=== PATIENT | male | born 1965 | race Caucasian/White ===

== ENCOUNTER 2020-09-30 11:21 | Inpatient (IN) | payer SELFPAY ==
[~2020-09-30] VITALS: Ht 175.3 cm; Wt 97.9 kg
[~2020-09-30 11:21] MED LIST: PHENYLEPHRINE 50 MG in SODIUM CHLORIDE 0.9% 245 ML IV PRN; REGULAR INSULIN 100 UNITS in SODIUM CHLORIDE 0.9% 99 ML IV PRN
[2020-09-30] MEDS ORDERED: MORPHINE SULFATE 4 MG/ML, 1ML ONE ×3 (11:35→12:15)
[2020-09-30] MEDS: MORPHINE SULFATE 4 MG/ML, 1ML IVPush PRN ×2 (11:41→11:52)
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
[2020-09-30] MEDS ORDERED: ONDANSETRON 2MG/ML, 2ML ONE (11:49)
[2020-09-30 11:54] LABS: BASOPHILS % (AUTO) 1 % (0-1); EOSINOPHILS % (AUTO) 1 % (1-7); LYMPHOCYTES % (AUTO) 25 % (22-44); MEAN CORPUSCULAR HEMOGLOBIN 33.3 pg (27.5-34.5); MEAN CORPUSCULAR HGB CONC 34.4 g/dL (33.2-36.2); MEAN PLATELET VOLUME 7.3 fL (7.4-10.4); MONOCYTES % (AUTO) 8 % (2-9); NEUTROPHILS % (AUTO) 66 % (42-75); PLATELET COUNT 422 x10^3/uL (130-400); RED BLOOD COUNT 4.82 x10^6/uL (4.38-5.82); RED CELL DISTRIBUTION WIDTH 12.7 % (9.4-14.8)
[2020-09-30] MEDS ORDERED: HEPARIN 5,000 UNITS/ML, 1ML ONE (11:54)
[2020-09-30] MEDS ORDERED: HEPARIN 5,000 UNITS/ML, 1ML IV PRN (12:00)
[2020-09-30] MEDS ORDERED: PLEASE ENTER HEIGHT AND WEIGHT MC SCH (12:00)
[2020-09-30] MEDS ORDERED: SODIUM CHLORIDE FLUSH 10ML SYR IVF SCH ×2 (12:00→21:00)
[2020-09-30] MEDS ORDERED: ONDANSETRON 2MG/ML, 2ML IVPush ONE (12:00)
[2020-09-30] MEDS ORDERED: HEPARIN 25,000 UNITS/250ML PMX 250 ML IV PRN (12:00)
[2020-09-30] MEDS ORDERED: HEPARIN 5,000 UNITS/ML, 1ML IV ONE (12:00)
[2020-09-30] MEDS ORDERED: NITROGLYCERIN 0.4 MG BOTTLE (25 TABS) SL PRN (12:00)
[2020-09-30] MEDS ORDERED: ASPIRIN 325 MG TABLET EC PO ONE (12:00)
[2020-09-30] MEDS ORDERED: NITROGLYCERIN 0.4 MG/SPRAY SL PRN (12:00)
[2020-09-30] MEDS ORDERED: SODIUM CHLORIDE FLUSH 10ML SYR IVF ONE (12:00)
[2020-09-30 12:05] LABS: ALANINE AMINOTRANSFERASE 14 U/L (12-78); ALBUMIN 4.3 g/dL (3.4-5.0); ANION GAP 14 mmol/L (5-15); CALCIUM 9.2 mg/dL (8.5-10.1); CHLORIDE 106 mmol/L (98-107); CREATININE 1.26 mg/dL (0.7-1.3)
[2020-09-30 12:10] LABS: ALKALINE PHOSPHATASE 58 U/L (45-117); BILIRUBIN,TOTAL 0.5 mg/dL (0.2-1.0); TOTAL PROTEIN 7.6 g/dL (6.4-8.2); TROPONIN I < 0.015 ng/mL (0.000-0.045)
--- NOTE | 2020-09-30 12:11 | NUR ---
PER DR. MORE DO NOT START HEPARIN DRIP AT THIS TIME, ONLY HEPARIN BOLUS OKAY TO GIVE.
--- NOTE | 2020-09-30 12:17 | NUR ---
PER DR. MORE'S ORDER, GIVE 4MG MORPHINE IV NOW FOR PAIN RELIEF.
[2020-09-30] MEDS ORDERED: MIDAZOLAM 1 MG/ML, 2ML ONE (12:22)
[2020-09-30 12:23] LABS: CHOL/HDL RATIO 5.9; LDL/HDL RATIO 4.3 (0.5-3.0)
[2020-09-30] MEDS ORDERED: HEPARIN 1,000 UNITS/ML, 10ML ONE ×2 (12:23→14:40)
[2020-09-30] MEDS ORDERED: VERAPAMIL 2.5 MG/ML, 2ML ONE (12:23)
[2020-09-30] MEDS ORDERED: LIDOCAINE-MPF 1%, 5ML ONE (12:23)
[2020-09-30] MEDS ORDERED: FENTANYL PF 100 MCG/2ML ONE ×2 (12:23→19:41)
--- NOTE | 2020-09-30 12:28 | NUR ---
PT TRANSPORTED TO [facility].
[2020-09-30] MEDS ORDERED: ACETAMINOPHEN 325 MG TABLET PO PRN (12:30)
[2020-09-30] MEDS ORDERED: ZOLPIDEM 5MG TABLET PO PRN (12:30)
[2020-09-30] MEDS ORDERED: ALUMINUM/MAG/SIMETHICONE 30 ML UDC PO PRN (12:30)
[2020-09-30] MEDS ORDERED: METOPROLOL TARTRATE 25 MG TAB PO ONE (12:30)
[2020-09-30] MEDS ORDERED: HEPARIN 25,000 UNITS/250ML PMX 250 ML ONE (12:53)
[2020-09-30] MEDS ORDERED: NITROGLYCERIN OINT 2%, 1GM TP ONE (14:00)
[2020-09-30 14:14] VITALS: BP 119/80
[2020-09-30] MEDS ORDERED: EPINEPHRINE 5 MG in SODIUM CHLORIDE 0.9% 245 ML IV ONE (14:30)
[2020-09-30] MEDS ORDERED: VANCOMYCIN 1,300 MG in SODIUM CHLORIDE 0.9% 250 ML IV ONE (14:30)
[2020-09-30] MEDS ORDERED: POTASSIUM CHLORIDE 80 MEQ, SODIUM BICARBONATE 8.4% 10 MEQ, MAGNESIUM SULFATE 0.5 GM, LI... IV ONE (14:30)
[2020-09-30] MEDS ORDERED: CEFUROXIME 1.5 GM in SODIUM CHLORIDE 0.9% 50 ML IVPB ONE (14:30)
[2020-09-30] MEDS ORDERED: MANNITOL PMX 20% 500 ML IVPB ONE (14:30)
[2020-09-30] MEDS ORDERED: DEXMEDETOMIDINE 200 MCG in SODIUM CHLORIDE 0.9% 48 ML IV ONE (14:30)
[2020-09-30] MEDS ORDERED: ALBUMIN HUMAN 5% 500 ML IV ONE ×2 (14:30→22:30)
[2020-09-30] MEDS ORDERED: PAPAVERINE 30 MG/ML, 2ML ONE (14:40)
[2020-09-30] MEDS ORDERED: ROCURONIUM 10MG/ML,5ML ONE ×5 (14:44→18:29)
[2020-09-30] MEDS ORDERED: FENTANYL PF 250 MCG/5ML ONE ×4 (14:46)
[2020-09-30] MEDS ORDERED: MIDAZOLAM 10MG/2 ML ONE (14:46)
[2020-09-30] MEDS ORDERED: CHLORHEXIDINE 15 ML UDC ONE (14:57)
[2020-09-30] MEDS ORDERED: PHENYLEPHRINE 10 MG/ML ONE (14:58)
[2020-09-30] MEDS ORDERED: EPINEPHRINE 1 MG/ML, 1ML ONE (14:58)
[2020-09-30] MEDS ORDERED: PHARMACY INSTRUCTION MC ONE (15:00)
[2020-09-30] MEDS ORDERED: MUPIROCIN OINT 2%, 15GM TP SCH (15:12)
[2020-09-30] MEDS ORDERED: MUPIROCIN OINT 2%, 15GM TP ONE (15:30)
[2020-09-30] MEDS ORDERED: INSULIN LISPRO 100 UNITS/ML, PEN SQ-INSULIN ONE (15:30)
[2020-09-30] MEDS ORDERED: MAGNESIUM SULFATE PMX 2GM/50ML 50 ML IV ONE (16:00)
[2020-09-30] MEDS ORDERED: METOPROLOL 1 MG/ML, 5ML ONE (16:21)
[2020-09-30] MEDS ORDERED: PROPOFOL 10 MG/ML, 20ML ONE (16:22)
[2020-09-30] MEDS ORDERED: AMINOCAPROIC ACID 250 MG/ML, 20ML ONE ×2 (16:23)
[2020-09-30] MEDS ORDERED: PROTAMINE SULFATE 10 MG/ML, 25ML ONE ×2 (17:27)
[2020-09-30] MEDS ORDERED: SODIUM BICARB 8.4%, 50ML SYRINGE ONE ×2 (19:25→20:09)
[2020-09-30] MEDS ORDERED: CALCIUM CHLORIDE 13.6 MEQ in SODIUM CHLORIDE 0.9% 100 ML IVPB PRN (20:00)
[2020-09-30] MEDS: INSULIN LISPRO 100 UNITS/ML, PEN SQ-INSULIN SCH (20:00)
[2020-09-30] MEDS ORDERED: NITROGLYCERIN/D5W PMX 250 ML IV PRN (20:00)
[2020-09-30] MEDS ORDERED: INSULIN REGULAR 100 UNITS/ML, 3ML VIAL IVPush PRN (20:00)
[2020-09-30] MEDS ORDERED: DEXMEDETOMIDINE 400 MCG in SODIUM CHLORIDE 0.9% 96 ML IV PRN (20:00)
[2020-09-30] MEDS ORDERED: SODIUM CHLORIDE 0.9% 1,000 ML IV SCH (20:00)
[2020-09-30] MEDS ORDERED: PROMETHAZINE 25 MG SUPP PR PRN (20:00)
[2020-09-30] MEDS ORDERED: ONDANSETRON 2MG/ML, 2ML IVPush PRN (20:00)
[2020-09-30] MEDS ORDERED: PROCHLORPERAZINE 5 MG/ML, 2ML IVPush PRN (20:00)
[2020-09-30] MEDS ORDERED: MIDAZOLAM 1 MG/ML, 2ML IV PRN (20:00)
[2020-09-30] MEDS: KSCALE TO 4.5 IV SCH (20:00)
[2020-09-30] MEDS ORDERED: DEXTROSE 50%, 50ML SYRINGE IVPush PRN (20:00)
[2020-09-30] MEDS ORDERED: ALBUMIN HUMAN 5% 500 ML IV PRN (20:00)
[2020-09-30] MEDS ORDERED: DEXTROSE 4 GM TAB.CHEW PO PRN (20:00)
[2020-09-30] MEDS ORDERED: LACTATED RINGERS 500 ML IV PRN (20:00)
[2020-09-30] MEDS ORDERED: OXYcodone IR 5MG TABLET PO PRN ×2 (20:00)
[2020-09-30] MEDS ORDERED: FENTANYL PF 100 MCG/2ML IV PRN (20:00)
[2020-09-30] MEDS ORDERED: GLUCAGON 1 MG IM PRN (20:00)
[2020-09-30] MEDS ORDERED: REGULAR INSULIN 100 UNITS in SODIUM CHLORIDE 0.9% 99 ML IV PRN (20:00)
[2020-09-30] MEDS: ACETAMINOPHEN 500 MG TABLET PO SCH (20:00)
[2020-09-30] MEDS: EPINEPHRINE 5 MG in SODIUM CHLORIDE 0.9% 245 ML IV PRN (20:05)
[2020-09-30] MEDS ORDERED: CALCIUM CHLORIDE 10%, 10ML SYR ONE (20:09)
[2020-09-30] MEDS ORDERED: LIDOCAINE 2%, 20ML ONE (20:10)
[2020-09-30] MEDS ORDERED: HEPARIN 1,000 UNITS/ML, 30ML ONE (20:10)
[2020-09-30] MEDS ORDERED: SODIUM BICARBONATE 1 MEQ/ML, 50ML VIAL ONE (20:10)
[2020-09-30] MEDS ORDERED: ALBUMIN HUMAN 25% 50 ML ONE (20:10)
[2020-09-30 20:15] LABS: GLUCOSE BY BLOOD GAS ANALYZER 150 mg/dL (70-110); HEMOGLOBIN BY BLOOD GAS ANALYZ 12.6 g/dL (14.0-18.0); POTASSIUM BY BLOOD GAS ANALYZR 4.4 mmol/L (3.6-5.5)
[2020-09-30] MEDS: SODIUM BICARB 8.4%, 50ML SYRINGE IV PRN ×2 (20:20→21:40)
[2020-09-30 20:26] LABS: INTERNATIONAL NORMALIZED RATIO 1.31 (0.93-1.1); PROTHROMBIN TIME 13.9 Seconds (9.6-11.5)
[2020-09-30] MEDS ORDERED: DIPHENHYDRAMINE 25 MG CAPSULE PO PRN (21:00)
[2020-09-30] MEDS: DOCUSATE 100 MG CAPSULE PO SCH (21:00)
[2020-09-30] MEDS: ATORVASTATIN 80 MG TABLET PO SCH (21:00)
[2020-09-30] MEDS: SENNA/DOCUSATE TABLET PO SCH (21:00)
[2020-09-30] MEDS: SODIUM CHLORIDE FLUSH 10ML SYR IVF SCH (21:14)
[2020-09-30] MEDS: MAGNESIUM SULFATE 1 GM in SODIUM CHLORIDE 0.9% 100 ML IVPB SCH (21:20)
[2020-09-30] MEDS ORDERED: CHLORHEXIDINE 15 ML UDC MM ONE (22:00)
[2020-09-30] MEDS: PHENYLEPHRINE 50 MG in SODIUM CHLORIDE 0.9% 245 ML IV PRN (22:44)
[2020-09-30] MEDS ORDERED: DOBUTAMINE/D5W PMX 250 ML IV PRN (23:30)
[2020-09-30 23:47] LABS: MEAN CORPUSCULAR HEMOGLOBIN 33.6 pg (27.5-34.5); MEAN CORPUSCULAR HGB CONC 34.5 g/dL (33.2-36.2); MEAN PLATELET VOLUME 7.6 fL (7.4-10.4); PLATELET COUNT 237 x10^3/uL (130-400); RED BLOOD COUNT 3.26 x10^6/uL (4.38-5.82); RED CELL DISTRIBUTION WIDTH 12.9 % (9.4-14.8)
[2020-09-30 23:50] VITALS: BP 91/63
[2020-10-01] MEDS ORDERED: ACETAMINOPHEN 650 MG SUPP ONE (00:21)
[2020-10-01 00:26] LABS: BAND#(MANUAL) 2.51 x10^3/uL; BANDS%(MANUAL) 13 % (0-7); LYMPH#(MANUAL) 1.16 x10^3/uL (1-3.4); LYMPHS% (MANUAL) 6 % (22-44); METAMYELOCYTES# (MANUAL) 0.39 x10^3/uL (0-0); METAMYELOCYTES% (MANUAL) 2 % (0-1); MONOS#(MANUAL) 1.35 x10^3/uL (0.3-2.7); MONOS% (MANUAL) 7 % (2-9); SEGS% (MANUAL) 72 % (42-75)
[2020-10-01 00:27] LABS: <PLATELET ESTIMATE> ADEQUATE; <PLT MORPHOLOGY> NORMAL PLT MORPH; <RBC MORPHOLOGY> NORMAL
[2020-10-01] MEDS ORDERED: LACTATED RINGERS 1,000 ML IVBOLUS ONE (00:30)
[2020-10-01] MEDS ORDERED: ACETAMINOPHEN 650 MG SUPP PR PRN (00:30)
[2020-10-01] MEDS: SODIUM BICARB 8.4%, 50ML SYRINGE IV PRN (00:38)
[2020-10-01 00:46] VITALS: BP 73/49
[2020-10-01] MEDS ORDERED: MAGNESIUM SULFATE 1 GM/2 ML ONE (01:00)
[2020-10-01] MEDS ORDERED: EPINEPHRINE SYRINGE 0.1 MG/ML, 10ML ONE (01:00)
[2020-10-01] MEDS ORDERED: POTASSIUM CHLORIDE 80 MEQ, SODIUM BICARBONATE 8.4% 10 MEQ, MAGNESIUM SULFATE 0.5 GM, LI... IV PRN (01:21)
[2020-10-01] MEDS ORDERED: MANNITOL PMX 20% 500 ML IVPB PRN (01:23)
[2020-10-01] MEDS ORDERED: EPINEPHRINE 5 MG in SODIUM CHLORIDE 0.9% 245 ML IV PRN (01:23)
[2020-10-01] MEDS ORDERED: REGULAR INSULIN 100 UNITS in SODIUM CHLORIDE 0.9% 99 ML IV PRN (01:23)
[2020-10-01] MEDS ORDERED: PHENYLEPHRINE 50 MG in SODIUM CHLORIDE 0.9% 245 ML IV PRN (01:23)
[2020-10-01] MEDS ORDERED: DEXMEDETOMIDINE 200 MCG in SODIUM CHLORIDE 0.9% 48 ML IV PRN (01:23)
[2020-10-01] MEDS ORDERED: ALBUMIN HUMAN 5% 500 ML IV PRN (01:24)
[2020-10-01] MEDS: EPINEPHRINE 5 MG in SODIUM CHLORIDE 0.9% 245 ML IV PRN ×2 (01:26→10:42)
[2020-10-01 01:30] VITALS: BP 113/67
[2020-10-01] MEDS ORDERED: PHENYLEPHRINE 10 MG/ML ONE (01:41)
[2020-10-01] MEDS ORDERED: EPINEPHRINE 1 MG/ML, 1ML ONE ×3 (01:42→02:35)
[2020-10-01] MEDS ORDERED: ROCURONIUM 10MG/ML,5ML ONE (01:43)
[2020-10-01 01:46] VITALS: BP 119/70
[2020-10-01] MEDS: KSCALE TO 4.5 IV SCH ×3 (02:00→14:00)
[2020-10-01] MEDS: ACETAMINOPHEN 500 MG TABLET PO SCH ×4 (02:00→20:36)
[2020-10-01] MEDS ORDERED: SODIUM BICARB 8.4%, 50ML SYRINGE ONE ×4 (02:20→02:38)
[2020-10-01] MEDS ORDERED: CODE BLUE RESPONSE XX ONE (02:30)
[2020-10-01] MEDS ORDERED: CALCIUM CHLORIDE 10%, 10ML SYR ONE ×2 (02:36)
[2020-10-01 03:02] LABS: INTERNATIONAL NORMALIZED RATIO 1.67 (0.93-1.1); PROTHROMBIN TIME 17.7 Seconds (9.6-11.5)
[2020-10-01] MEDS ORDERED: PAPAVERINE 30 MG/ML, 2ML ONE (03:03)
[2020-10-01] MEDS ORDERED: INSULIN SINGLE DOSE, ER ONE (03:04)
[2020-10-01] MEDS ORDERED: MILRINONE 1 MG/ML, 10ML IV ONE (03:08)
[2020-10-01] MEDS ORDERED: PAPAVERINE 30 MG/ML, 2ML IVPush ONE (03:09)
[2020-10-01 03:10] LABS: PARTIAL THROMBOPLASTIN TIME > 95 Seconds (25-31)
[2020-10-01 03:11] LABS: FIBRINOGEN 81 mg/dL (200-340)
[2020-10-01] MEDS ORDERED: MIDAZOLAM 10MG/2 ML ONE (03:39)
[2020-10-01] MEDS ORDERED: VASOPRESSIN 20 UNIT/ML, 1ML ONE (03:52)
[2020-10-01] MEDS ORDERED: NOREPINEPHRINE 8 MG in SODIUM CHLORIDE 0.9% 242 ML IV PRN (04:00)
[2020-10-01] MEDS: INSULIN LISPRO 100 UNITS/ML, PEN SQ-INSULIN SCH ×6 (04:00→20:00)
[2020-10-01 04:36] LABS: MEAN CORPUSCULAR HEMOGLOBIN 32.9 pg (27.5-34.5); MEAN CORPUSCULAR HGB CONC 34.3 g/dL (33.2-36.2); MEAN PLATELET VOLUME 7.6 fL (7.4-10.4); PLATELET COUNT 99 x10^3/uL (130-400); RED CELL DISTRIBUTION WIDTH 14.2 % (9.4-14.8)
[2020-10-01] MEDS ORDERED: NOVOSEVEN RT (FACTOR VIIA) RECOMB 1,000 MCG IVPush STA (04:37)
[2020-10-01] MEDS ORDERED: AMIODARONE 50 MG/ML, 3ML ONE (04:38)
[2020-10-01 04:51] LABS: INTERNATIONAL NORMALIZED RATIO 1.47 (0.93-1.1); PROTHROMBIN TIME 15.6 Seconds (9.6-11.5)
[2020-10-01 05:09] LABS: BAND#(MANUAL) 3.01 x10^3/uL; BANDS%(MANUAL) 22 % (0-7); LYMPH#(MANUAL) 0.55 x10^3/uL (1-3.4); LYMPHS% (MANUAL) 4 % (22-44); METAMYELOCYTES# (MANUAL) 0.82 x10^3/uL (0-0); METAMYELOCYTES% (MANUAL) 6 % (0-1); MONOS#(MANUAL) 0.14 x10^3/uL (0.3-2.7); MONOS% (MANUAL) 1 % (2-9); MYELOCYTES# (MANUAL) 0.27 x10^3/uL (0-0); MYELOCYTES% (MANUAL) 2 % (0-0); SEG#(MANUAL) 8.91 x10^3/uL (1.8-6.8); SEGS% (MANUAL) 65 % (42-75)
[2020-10-01] MEDS ORDERED: POTASSIUM CHLORIDE 40MEQ/20ML IV ONE (05:09)
[2020-10-01] MEDS ORDERED: HEPARIN 1,000 UNITS/ML, 30ML ONE (05:09)
[2020-10-01] MEDS ORDERED: PROPOFOL 100 ML IV ONE (05:10)
[2020-10-01 05:11] LABS: ANISOCYTOSIS 1+; CRENATED 1+; OVALOCYTES 1+
[2020-10-01 05:12] LABS: MICROCYTOSIS 1+
[2020-10-01] MEDS ORDERED: SODIUM BICARBONATE 1 MEQ/ML, 50ML VIAL ONE (05:12)
[2020-10-01 05:14] LABS: <PLATELET ESTIMATE> DECREASED; <PLT MORPHOLOGY> NORMAL PLT MORPH
[2020-10-01 05:15] LABS: PMNS WITH VACUOLES 1+
[2020-10-01] MEDS ORDERED: PROPOFOL 100 ML IV PRN (05:30)
[2020-10-01] MEDS: CEFUROXIME 1.5 GM in SODIUM CHLORIDE 0.9% 50 ML IVPB SCH ×2 (05:30→17:47)
[2020-10-01] MEDS: VANCOMYCIN 1,300 MG in SODIUM CHLORIDE 0.9% 250 ML IVPB SCH ×2 (05:58→18:22)
[2020-10-01] MEDS: MUPIROCIN OINT 2%, 15GM NAS SCH ×2 (06:00→17:52)
[2020-10-01] MEDS ORDERED: ASPIRIN 325 MG TABLET EC PO SCH (06:00)
[2020-10-01] MEDS ORDERED: AMIODARONE 150 MG in DEXTROSE 5% 100 ML IV ONE (06:00)
[2020-10-01] MEDS ORDERED: FILTER 0.22 MICRON IV ONE (06:00)
[2020-10-01 07:04] LABS: ALANINE AMINOTRANSFERASE 195 U/L (12-78); ALBUMIN 2.6 g/dL (3.4-5.0); ANION GAP 12 mmol/L (5-15); CALCIUM 8.2 mg/dL (8.5-10.1); CHLORIDE 120 mmol/L (98-107); CREATININE 1.48 mg/dL (0.7-1.3)
[2020-10-01 07:07] LABS: ALKALINE PHOSPHATASE 33 U/L (45-117); BILIRUBIN,TOTAL 1.3 mg/dL (0.2-1.0); TOTAL PROTEIN 4.3 g/dL (6.4-8.2)
[2020-10-01 07:14] LABS: MICROSCOPIC INDICATED
[2020-10-01 07:23] LABS: INTERNATIONAL NORMALIZED RATIO 1.06 (0.93-1.1); PROTHROMBIN TIME 11.3 Seconds (9.6-11.5)
[2020-10-01] MEDS: OMEPRAZOLE 20 MG CAPSULE.DR PO SCH (07:30)
[2020-10-01] MEDS ORDERED: CEFUROXIME 1.5 GM in SODIUM CHLORIDE 0.9% 50 ML IVPB ONE (07:30)
[2020-10-01] MEDS ORDERED: VANCOMYCIN 0 MG in SODIUM CHLORIDE 0.9% 250 ML IVPB ONE (07:30)
[2020-10-01] MEDS: PHENYLEPHRINE 50 MG in SODIUM CHLORIDE 0.9% 245 ML IV PRN (08:08)
[2020-10-01] MEDS ORDERED: POTASSIUM CHLORIDE 30 MEQ in SODIUM CHLORIDE 0.9% 100 ML IV ONE (08:30)
[2020-10-01] MEDS: CHLORHEXIDINE 15 ML UDC MM SCH ×2 (09:00→20:37)
[2020-10-01] MEDS: ASPIRIN 81 MG TABLET EC PO SCH (09:00)
[2020-10-01] MEDS: POLYETHYLENE GLYCOL 17 GM PACKET PO SCH (09:00)
[2020-10-01] MEDS: DOCUSATE 100 MG CAPSULE PO SCH ×2 (09:00→20:36)
[2020-10-01] MEDS: SENNA/DOCUSATE TABLET PO SCH ×2 (09:00→20:36)
[2020-10-01] MEDS: METOPROLOL TARTRATE 25 MG TAB PO/NG SCH ×2 (09:00→20:28)
[2020-10-01] MEDS ORDERED: FILTER 0.22 MICRON IV PRN (09:00)
[2020-10-01] MEDS: SODIUM CHLORIDE FLUSH 10ML SYR IVF SCH ×2 (09:14→20:37)
[2020-10-01] MEDS: AMIODARONE 450 MG in DEXTROSE 5% 241 ML IV PRN (10:44)
[2020-10-01] MEDS: ATORVASTATIN 80 MG TABLET PO SCH (20:37)
[2020-10-01] MEDS ORDERED: MAGNESIUM SULFATE/D5W 100 ML ONE (20:45)
[2020-10-01] MEDS: MAGNESIUM SULFATE 1 GM in SODIUM CHLORIDE 0.9% 100 ML IVPB SCH (21:07)
[2020-10-01] MEDS: morphine SULFATE 10 MG/ML, 1ML IVPush PRN (22:00)
[2020-10-02] MEDS: AMIODARONE 450 MG in DEXTROSE 5% 241 ML IV PRN (00:42)
[2020-10-02] MEDS: INSULIN LISPRO 100 UNITS/ML, PEN SQ-INSULIN SCH ×6 (01:16→20:00)
[2020-10-02] MEDS: ACETAMINOPHEN 500 MG TABLET PO SCH ×4 (01:24→19:58)
[2020-10-02 02:17] LABS: BASOPHILS % (AUTO) 0 % (0-1); EOSINOPHILS % (AUTO) 0 % (1-7); LYMPHOCYTES % (AUTO) 12 % (22-44); MEAN CORPUSCULAR HEMOGLOBIN 32.7 pg (27.5-34.5); MEAN CORPUSCULAR HGB CONC 34.4 g/dL (33.2-36.2); MONOCYTES % (AUTO) 5 % (2-9); NEUTROPHILS % (AUTO) 83 % (42-75); PLATELET COUNT 81 x10^3/uL (130-400); RED BLOOD COUNT 3.51 x10^6/uL (4.38-5.82)
[2020-10-02] MEDS: morphine SULFATE 10 MG/ML, 1ML IVPush PRN (02:27)
[2020-10-02 02:28] LABS: ANION GAP 5 mmol/L (5-15); CALCIUM 7.3 mg/dL (8.5-10.1); CHLORIDE 111 mmol/L (98-107); CREATININE 1.63 mg/dL (0.7-1.3)
[2020-10-02 05:14] LABS: MEAN CORPUSCULAR HEMOGLOBIN 32.4 pg (27.5-34.5); MEAN CORPUSCULAR HGB CONC 33.7 g/dL (33.2-36.2); MEAN PLATELET VOLUME 9.6 fL (7.4-10.4); PLATELET COUNT 80 x10^3/uL (130-400); RED BLOOD COUNT 3.52 x10^6/uL (4.38-5.82); RED CELL DISTRIBUTION WIDTH 15.2 % (9.4-14.8)
[2020-10-02 05:21] LABS: ANION GAP 5 mmol/L (5-15); CALCIUM 7.2 mg/dL (8.5-10.1); CHLORIDE 110 mmol/L (98-107); CREATININE 1.64 mg/dL (0.7-1.3)
[2020-10-02] MEDS: MUPIROCIN OINT 2%, 15GM NAS SCH ×2 (06:00→18:00)
[2020-10-02 06:11] LABS: <RBC MORPHOLOGY> NORMAL; BAND#(MANUAL) 2.16 x10^3/uL; BANDS%(MANUAL) 15 % (0-7); LYMPH#(MANUAL) 1.73 x10^3/uL (1-3.4); LYMPHS% (MANUAL) 12 % (22-44); MONOS#(MANUAL) 0.72 x10^3/uL (0.3-2.7); MONOS% (MANUAL) 5 % (2-9); SEG#(MANUAL) 9.79 x10^3/uL (1.8-6.8); SEGS% (MANUAL) 68 % (42-75)
[2020-10-02 06:12] LABS: <PLATELET ESTIMATE> DECREASED; <PLT MORPHOLOGY> NORMAL PLT MORPH
[2020-10-02] MEDS: EPINEPHRINE 5 MG in SODIUM CHLORIDE 0.9% 245 ML IV PRN (06:20)
[2020-10-02] MEDS: POLYETHYLENE GLYCOL 17 GM PACKET PO SCH (09:00)
[2020-10-02] MEDS: SENNA/DOCUSATE TABLET PO SCH ×2 (09:00→20:47)
[2020-10-02] MEDS: OMEPRAZOLE 20 MG CAPSULE.DR PO SCH (09:09)
[2020-10-02] MEDS: ASPIRIN 81 MG TABLET EC PO SCH (09:09)
[2020-10-02] MEDS: DOCUSATE 100 MG CAPSULE PO SCH ×2 (09:09→20:47)
[2020-10-02] MEDS: CHLORHEXIDINE 15 ML UDC MM SCH ×2 (09:09→20:46)
[2020-10-02] MEDS: SODIUM CHLORIDE FLUSH 10ML SYR IVF SCH ×2 (09:10→20:46)
[2020-10-02] MEDS: METOPROLOL TARTRATE 25 MG TAB PO/NG SCH ×2 (09:10→20:48)
[2020-10-02] MEDS ORDERED: FUROSEMIDE 40 MG/4 ML IV ONE (09:30)
[2020-10-02] MEDS: AMIODARONE 200 MG TABLET PO SCH ×2 (11:01→20:47)
[2020-10-02] MEDS: CEFAZOLIN PMX 1GM/50ML 50 ML IV SCH ×2 (12:03→18:29)
[2020-10-02] MEDS ORDERED: FUROSEMIDE 40 MG/4 ML IV SCH (17:00)
[2020-10-02] MEDS ORDERED: BISACODYL 10 MG SUPP PR PRN (20:00)
[2020-10-02] MEDS: MAGNESIUM SULFATE 1 GM in SODIUM CHLORIDE 0.9% 100 ML IVPB SCH (20:25)
[2020-10-02] MEDS: ATORVASTATIN 80 MG TABLET PO SCH (20:47)
[2020-10-03] MEDS: INSULIN LISPRO 100 UNITS/ML, PEN SQ-INSULIN SCH ×7 (00:21→23:57)
[2020-10-03] MEDS: ACETAMINOPHEN 500 MG TABLET PO SCH ×4 (02:07→20:34)
[2020-10-03] MEDS: EPINEPHRINE 5 MG in SODIUM CHLORIDE 0.9% 245 ML IV PRN (02:09)
[2020-10-03] MEDS: CEFAZOLIN PMX 1GM/50ML 50 ML IV SCH (02:56)
[2020-10-03 04:28] LABS: BASOPHILS % (AUTO) 0 % (0-1); EOSINOPHILS % (AUTO) 0 % (1-7); LYMPHOCYTES % (AUTO) 11 % (22-44); MEAN CORPUSCULAR HEMOGLOBIN 33.1 pg (27.5-34.5); MEAN CORPUSCULAR HGB CONC 34.5 g/dL (33.2-36.2); MEAN PLATELET VOLUME 9.3 fL (7.4-10.4); MONOCYTES % (AUTO) 3 % (2-9); NEUTROPHILS % (AUTO) 86 % (42-75); RED BLOOD COUNT 3.32 x10^6/uL (4.38-5.82); RED CELL DISTRIBUTION WIDTH 14.3 % (9.4-14.8)
[2020-10-03 04:40] LABS: ANION GAP 4 mmol/L (5-15); CALCIUM 7.2 mg/dL (8.5-10.1); CHLORIDE 106 mmol/L (98-107); CREATININE 1.36 mg/dL (0.7-1.3)
[2020-10-03 05:03] LABS: PLATELET COUNT 43 x10^3/uL (130-400)
[2020-10-03] MEDS: MUPIROCIN OINT 2%, 15GM NAS SCH ×2 (06:00→17:13)
[2020-10-03 06:19] LABS: ALBUMIN 2.9 g/dL (3.4-5.0); BILIRUBIN, DIRECT 2.1 mg/dL (0.1-0.2)
[2020-10-03 06:34] LABS: BILIRUBIN,INDIRECT 1.3 mg/dL (0.0-2.0); BILIRUBIN,TOTAL 3.4 mg/dL (0.2-1.0); TOTAL PROTEIN 4.7 g/dL (6.4-8.2)
[2020-10-03] MEDS: CLOPIDOGREL 75 MG TABLET PO SCH (07:31)
[2020-10-03] MEDS: METOPROLOL TARTRATE 25 MG TAB PO/NG SCH ×2 (07:32→20:36)
[2020-10-03] MEDS ORDERED: POTASSIUM CHLORIDE 20 MEQ TAB.ER.PRT PO ONE (08:30)
[2020-10-03] MEDS: POLYETHYLENE GLYCOL 17 GM PACKET PO SCH (09:00)
[2020-10-03] MEDS ORDERED: FUROSEMIDE 20 MG/2 ML IV ONE (10:00)
[2020-10-03] MEDS: SENNA/DOCUSATE TABLET PO SCH ×2 (10:12→20:35)
[2020-10-03] MEDS: DOCUSATE 100 MG CAPSULE PO SCH ×2 (10:12→20:34)
[2020-10-03] MEDS: ASPIRIN 81 MG TABLET EC PO SCH (10:12)
[2020-10-03] MEDS: SODIUM CHLORIDE FLUSH 10ML SYR IVF SCH ×2 (10:12→20:36)
[2020-10-03] MEDS: AMIODARONE 200 MG TABLET PO SCH ×2 (10:12→20:35)
[2020-10-03] MEDS: OMEPRAZOLE 20 MG CAPSULE.DR PO SCH (10:13)
[2020-10-03 10:29] VITALS: BP 117/71
[2020-10-03 10:44] VITALS: BP 118/69
[2020-10-03 11:13] VITALS: BP 114/66
[2020-10-03 11:32] VITALS: BP 110/64
[2020-10-03 12:33] VITALS: BP 98/58
[2020-10-03] MEDS ORDERED: VASOPRESSIN 20 UNIT in SODIUM CHLORIDE 0.9% 99 ML IV PRN (13:00)
[2020-10-03] MEDS: FUROSEMIDE 40 MG/4 ML IV SCH (17:00)
[2020-10-03] MEDS ORDERED: FUROSEMIDE 20 MG/2 ML ONE (17:09)
[2020-10-03] MEDS: ATORVASTATIN 80 MG TABLET PO SCH (20:34)
[2020-10-04] MEDS: ACETAMINOPHEN 500 MG TABLET PO SCH ×4 (02:05→22:12)
[2020-10-04 04:56] LABS: BASOPHILS % (AUTO) 1 % (0-1); EOSINOPHILS % (AUTO) 1 % (1-7); LYMPHOCYTES % (AUTO) 12 % (22-44); MEAN CORPUSCULAR HEMOGLOBIN 32.9 pg (27.5-34.5); MEAN CORPUSCULAR HGB CONC 34.8 g/dL (33.2-36.2); MEAN PLATELET VOLUME 10.9 fL (7.4-10.4); MONOCYTES % (AUTO) 5 % (2-9); NEUTROPHILS % (AUTO) 82 % (42-75); PLATELET COUNT 71 x10^3/uL (130-400); RED BLOOD COUNT 3.27 x10^6/uL (4.38-5.82)
[2020-10-04 05:05] LABS: ALANINE AMINOTRANSFERASE 999 U/L (12-78); ALBUMIN 2.7 g/dL (3.4-5.0); ANION GAP 6 mmol/L (5-15); CALCIUM 7.3 mg/dL (8.5-10.1); CHLORIDE 106 mmol/L (98-107); CREATININE 1.22 mg/dL (0.7-1.3)
[2020-10-04 05:11] LABS: ALKALINE PHOSPHATASE 117 U/L (45-117); BILIRUBIN,TOTAL 3.2 mg/dL (0.2-1.0); TOTAL PROTEIN 4.9 g/dL (6.4-8.2)
[2020-10-04] MEDS: MUPIROCIN OINT 2%, 15GM NAS SCH ×2 (06:15→17:23)
[2020-10-04] MEDS: FUROSEMIDE 40 MG/4 ML IV SCH ×2 (07:30→17:22)
[2020-10-04] MEDS: INSULIN LISPRO 100 UNITS/ML, PEN SQ-INSULIN SCH ×4 (07:45→22:20)
[2020-10-04] MEDS: CLOPIDOGREL 75 MG TABLET PO SCH (08:41)
[2020-10-04] MEDS: METOPROLOL TARTRATE 25 MG TAB PO/NG SCH ×2 (08:43→22:14)
[2020-10-04] MEDS: POLYETHYLENE GLYCOL 17 GM PACKET PO SCH (08:43)
[2020-10-04] MEDS ORDERED: FUROSEMIDE 20 MG/2 ML ONE (08:48)
[2020-10-04] MEDS: ASPIRIN 81 MG TABLET EC PO SCH (08:51)
[2020-10-04] MEDS: AMIODARONE 200 MG TABLET PO SCH ×2 (08:51→22:14)
[2020-10-04] MEDS: OMEPRAZOLE 20 MG CAPSULE.DR PO SCH (08:52)
[2020-10-04] MEDS: SENNA/DOCUSATE TABLET PO SCH ×2 (08:52→22:14)
[2020-10-04] MEDS: DOCUSATE 100 MG CAPSULE PO SCH ×2 (08:52→22:14)
[2020-10-04] MEDS: SODIUM CHLORIDE FLUSH 10ML SYR IVF SCH ×2 (08:53→22:14)
[2020-10-04 16:21] LABS: MICROSCOPIC INDICATED
[2020-10-04 22:06] VITALS: BP 107/71
[2020-10-04] MEDS: ATORVASTATIN 80 MG TABLET PO SCH (22:14)
[2020-10-05 02:10] VITALS: BP 109/71
[2020-10-05] MEDS: ACETAMINOPHEN 500 MG TABLET PO SCH ×3 (02:22→14:00)
[2020-10-05 05:56] LABS: MEAN CORPUSCULAR HEMOGLOBIN 32.7 pg (27.5-34.5); MEAN PLATELET VOLUME 10.7 fL (7.4-10.4); PLATELET COUNT 105 x10^3/uL (130-400); RED BLOOD COUNT 3.39 x10^6/uL (4.38-5.82); RED CELL DISTRIBUTION WIDTH 14.3 % (9.4-14.8)
[2020-10-05 06:18] LABS: CHLORIDE 108 mmol/L (98-107)
[2020-10-05 06:39] LABS: ALANINE AMINOTRANSFERASE 793 U/L (12-78); ALBUMIN 2.6 g/dL (3.4-5.0); ALKALINE PHOSPHATASE 177 U/L (45-117); ANION GAP 4 mmol/L (5-15); BILIRUBIN,TOTAL 2.6 mg/dL (0.2-1.0); CALCIUM 7.4 mg/dL (8.5-10.1); CREATININE 1.06 mg/dL (0.7-1.3); TOTAL PROTEIN 5.2 g/dL (6.4-8.2)
[2020-10-05 06:43] LABS: ANISOCYTOSIS 2+; BAND#(MANUAL) 1.06 x10^3/uL; BANDS%(MANUAL) 8 % (0-7); LYMPH#(MANUAL) 1.33 x10^3/uL (1-3.4); LYMPHS% (MANUAL) 10 % (22-44); MONOS#(MANUAL) 0.67 x10^3/uL (0.3-2.7); MONOS% (MANUAL) 5 % (2-9); SEG#(MANUAL) 10.24 x10^3/uL (1.8-6.8); SEGS% (MANUAL) 77 % (42-75)
[2020-10-05 06:44] LABS: POLYCHROMASIA 1+
[2020-10-05 06:45] LABS: <PLATELET ESTIMATE> DECREASED; LARGE PLATELETS 1+
[2020-10-05] MEDS: INSULIN LISPRO 100 UNITS/ML, PEN SQ-INSULIN SCH ×4 (07:00→20:37)
[2020-10-05] MEDS: MUPIROCIN OINT 2%, 15GM NAS SCH ×2 (07:39→17:58)
[2020-10-05 08:10] VITALS: BP 99/64
[2020-10-05] MEDS: OMEPRAZOLE 20 MG CAPSULE.DR PO SCH (08:20)
[2020-10-05] MEDS: CLOPIDOGREL 75 MG TABLET PO SCH (09:00)
[2020-10-05] MEDS: POLYETHYLENE GLYCOL 17 GM PACKET PO SCH (09:00)
[2020-10-05] MEDS: SENNA/DOCUSATE TABLET PO SCH ×2 (09:00→19:33)
[2020-10-05] MEDS: METOPROLOL TARTRATE 25 MG TAB PO SCH ×2 (09:30→17:59)
[2020-10-05 10:29] VITALS: BP 96/57
[2020-10-05] MEDS: AMIODARONE 200 MG TABLET PO SCH ×2 (10:34→20:33)
[2020-10-05] MEDS: DOCUSATE 100 MG CAPSULE PO SCH ×2 (10:34→19:33)
[2020-10-05] MEDS: ASPIRIN 81 MG TABLET EC PO SCH (10:34)
[2020-10-05] MEDS: SODIUM CHLORIDE FLUSH 10ML SYR IVF SCH ×2 (10:35→19:33)
[2020-10-05 12:51] VITALS: BP 119/77
[2020-10-05] MEDS: FUROSEMIDE 20 MG/2 ML IV SCH ×2 (12:54→20:34)
[2020-10-05] MEDS ORDERED: FUROSEMIDE 20 MG/2 ML IV SCH (17:00)
[2020-10-05 17:57] VITALS: BP 106/68
[2020-10-05 19:00] VITALS: BP 103/67
[2020-10-05] MEDS: LISINOPRIL 5 MG TABLET PO SCH (20:33)
[2020-10-05] MEDS: ATORVASTATIN 80 MG TABLET PO SCH (20:33)
[2020-10-06 00:16] VITALS: BP 107/74
[2020-10-06 04:55] VITALS: BP 105/69
[2020-10-06] MEDS: METOPROLOL TARTRATE 25 MG TAB PO SCH (04:56)
[2020-10-06 05:15] LABS: BASOPHILS % (AUTO) 1 % (0-1); EOSINOPHILS % (AUTO) 2 % (1-7); LYMPHOCYTES % (AUTO) 11 % (22-44); MEAN CORPUSCULAR HEMOGLOBIN 32.7 pg (27.5-34.5); MEAN CORPUSCULAR HGB CONC 33.8 g/dL (33.2-36.2); MONOCYTES % (AUTO) 11 % (2-9); NEUTROPHILS % (AUTO) 76 % (42-75); PLATELET COUNT 135 x10^3/uL (130-400)
[2020-10-06 05:24] LABS: ALBUMIN 2.7 g/dL (3.4-5.0); ANION GAP 7 mmol/L (5-15); CALCIUM 7.5 mg/dL (8.5-10.1); CHLORIDE 107 mmol/L (98-107)
[2020-10-06 05:28] LABS: ALANINE AMINOTRANSFERASE 588 U/L (12-78); ALKALINE PHOSPHATASE 218 U/L (45-117); BILIRUBIN,TOTAL 2.6 mg/dL (0.2-1.0); CREATININE 1.08 mg/dL (0.7-1.3); TOTAL PROTEIN 5.6 g/dL (6.4-8.2)
[2020-10-06] MEDS: INSULIN LISPRO 100 UNITS/ML, PEN SQ-INSULIN SCH (07:00)
[2020-10-06 07:20] VITALS: BP 102/67
[2020-10-06] MEDS: ASPIRIN 81 MG TABLET EC PO SCH ×2 (07:20→08:23)
[2020-10-06] MEDS: FUROSEMIDE 20 MG/2 ML IV SCH ×2 (07:35→16:54)
[2020-10-06] MEDS: OMEPRAZOLE 20 MG CAPSULE.DR PO SCH (07:35)
[2020-10-06] MEDS: SODIUM CHLORIDE FLUSH 10ML SYR IVF SCH ×2 (07:35→22:01)
[2020-10-06] MEDS: AMIODARONE 200 MG TABLET PO SCH ×2 (07:36→22:01)
[2020-10-06] MEDS: LISINOPRIL 5 MG TABLET PO SCH ×2 (07:39→22:01)
[2020-10-06] MEDS ORDERED: POLYETHYLENE GLYCOL 17 GM PACKET PO PRN (08:12)
[2020-10-06] MEDS: CLOPIDOGREL 75 MG TABLET PO SCH (08:23)
[2020-10-06] MEDS ORDERED: DOCUSATE 100 MG CAPSULE PO PRN (08:30)
[2020-10-06] MEDS ORDERED: SENNA/DOCUSATE TABLET PO PRN (08:30)
[2020-10-06 13:20] VITALS: BP 100/66
[2020-10-06] MEDS ORDERED: METOPROLOL SUCCINATE 25 MG TAB.ER.24H PO SCH (21:00)
[2020-10-06 21:43] VITALS: BP 107/71
[2020-10-06] MEDS: ATORVASTATIN 80 MG TABLET PO SCH (22:01)
[2020-10-07 01:45] VITALS: BP 104/70
[2020-10-07 05:10] LABS: MEAN CORPUSCULAR HEMOGLOBIN 32.9 pg (27.5-34.5); MEAN CORPUSCULAR HGB CONC 33.9 g/dL (33.2-36.2); MEAN PLATELET VOLUME 10.6 fL (7.4-10.4); PLATELET COUNT 164 x10^3/uL (130-400); RED CELL DISTRIBUTION WIDTH 14.4 % (9.4-14.8)
[2020-10-07 05:20] LABS: ALBUMIN 2.5 g/dL (3.4-5.0); ANION GAP 6 mmol/L (5-15); CALCIUM 7.6 mg/dL (8.5-10.1); CHLORIDE 110 mmol/L (98-107)
[2020-10-07 05:24] LABS: ALANINE AMINOTRANSFERASE 382 U/L (12-78); ALKALINE PHOSPHATASE 208 U/L (45-117); BILIRUBIN,TOTAL 2.1 mg/dL (0.2-1.0); CREATININE 0.92 mg/dL (0.7-1.3); TOTAL PROTEIN 5.4 g/dL (6.4-8.2)
[2020-10-07 06:23] LABS: ANISOCYTOSIS 1+; BAND#(MANUAL) 0.11 x10^3/uL; BANDS%(MANUAL) 1 % (0-7); EOS#(MANUAL) 0.43 x10^3/uL (0.0-0.4); EOS% (MANUAL) 4 % (1-7); LYMPH#(MANUAL) 0.86 x10^3/uL (1-3.4); LYMPHS% (MANUAL) 8 % (22-44); METAMYELOCYTES# (MANUAL) 0.11 x10^3/uL (0-0); METAMYELOCYTES% (MANUAL) 1 % (0-1); MONOS#(MANUAL) 1.08 x10^3/uL (0.3-2.7); MONOS% (MANUAL) 10 % (2-9); MYELOCYTES# (MANUAL) 0.32 x10^3/uL (0-0); MYELOCYTES% (MANUAL) 3 % (0-0); POLYCHROMASIA 1+; SEG#(MANUAL) 7.88 x10^3/uL (1.8-6.8); SEGS% (MANUAL) 73 % (42-75)
[2020-10-07 06:24] LABS: <PLATELET ESTIMATE> DECREASED; LARGE PLATELETS 1+
[2020-10-07 06:50] VITALS: BP 103/68
[2020-10-07] MEDS: OMEPRAZOLE 20 MG CAPSULE.DR PO SCH (07:26)
[2020-10-07] MEDS: FUROSEMIDE 20 MG/2 ML IV SCH (07:27)
[2020-10-07] MEDS: AMIODARONE 200 MG TABLET PO SCH (07:27)
[2020-10-07] MEDS: ASPIRIN 81 MG TABLET EC PO SCH (07:28)
[2020-10-07] MEDS: CLOPIDOGREL 75 MG TABLET PO SCH (07:28)
[2020-10-07] MEDS: LISINOPRIL 5 MG TABLET PO SCH (07:29)
[2020-10-07] MEDS: SODIUM CHLORIDE FLUSH 10ML SYR IVF SCH (07:32)
[2020-10-07] MEDS ORDERED: FURO-92 PO (10:41)
[2020-10-07] MEDS ORDERED: OMEP-110 PO (10:41)
[2020-10-07] MEDS ORDERED: ATOR-2 PO (10:41)
[2020-10-07] MEDS ORDERED: CLOP75TA PO (10:41)
[2020-10-07] MEDS ORDERED: POTA20TA89 PO (10:41)
[2020-10-07] MEDS ORDERED: LISI5TAB7 PO (10:41)
[2020-10-07] MEDS ORDERED: METO25TA91 PO (10:41)
[2020-10-07] MEDS ORDERED: AMIO200T42 PO (10:41)
[2020-10-07] MEDS ORDERED: ASPI81TA45 PO (10:41)
== END 2020-10-07 12:43 | disposition home health service (06) | DRG 233 ==
LOC: ED 13:37 → CCU 13:39 → CSU 10-03 15:50 → 5SO 10-04 17:34 → DCLOUNGE 10-07 12:22
PROVIDERS: ADMIT Internal Medicine Cardiovascular Disease; ATTEND Internal Medicine Cardiovascular Disease
PROC: 4A023N7 Measurement of Cardiac Sampling and Pressure, Left Heart, Percutaneous Approach (ICD-10-PCS; 2020-09-30)
PROC: 06BP4ZZ Excision of Right Saphenous Vein, Percutaneous Endoscopic Approach (ICD-10-PCS; 2020-09-30)
PROC: 021109W Bypass Coronary Artery, Two Arteries from Aorta with Autologous Venous Tissue, Open Approach (ICD-10-PCS; 2020-09-30)
PROC: 02100Z9 Bypass Coronary Artery, One Artery from Left Internal Mammary, Open Approach (ICD-10-PCS; 2020-09-30)
PROC: B2111ZZ Fluoroscopy of Multiple Coronary Arteries using Low Osmolar Contrast (ICD-10-PCS; 2020-09-30)
PROC: 5A1221Z Performance of Cardiac Output, Continuous (ICD-10-PCS; 2020-09-30)
PROC: B24BZZ4 Ultrasonography of Heart with Aorta, Transesophageal (ICD-10-PCS; 2020-09-30)
PROC: 30233R1 Transfusion of Nonautologous Platelets into Peripheral Vein, Percutaneous Approach (ICD-10-PCS; 2020-09-30)
PROC: 02100Z9 Bypass Coronary Artery, One Artery from Left Internal Mammary, Open Approach (ICD-10-PCS; principal; 2020-09-30 14:30)
PROC: 0W9C00Z Drainage of Mediastinum with Drainage Device, Open Approach (ICD-10-PCS; 2020-10-01)
PROC: 5A12012 Performance of Cardiac Output, Single, Manual (ICD-10-PCS; 2020-10-01)
PROC: 0W990ZZ Drainage of Right Pleural Cavity, Open Approach (ICD-10-PCS; 2020-10-01)
PROC: 0W9B0ZZ Drainage of Left Pleural Cavity, Open Approach (ICD-10-PCS; 2020-10-01)
PROC: 30233K1 Transfusion of Nonautologous Frozen Plasma into Peripheral Vein, Percutaneous Approach (ICD-10-PCS; 2020-10-01)
PROC: 30233N1 Transfusion of Nonautologous Red Blood Cells into Peripheral Vein, Percutaneous Approach (ICD-10-PCS; 2020-10-01)
PROC: 30233M1 Transfusion of Nonautologous Plasma Cryoprecipitate into Peripheral Vein, Percutaneous Approach (ICD-10-PCS; 2020-10-01)
DX: I21.4 Non-ST elevation (NSTEMI) myocardial infarction (principal); I50.41 Acute combined systolic (congestive) and diastolic (congestive) heart failure; J96.01 Acute respiratory failure with hypoxia; R57.1 Hypovolemic shock; I97.120 Postprocedural cardiac arrest following cardiac surgery; I47.2 Ventricular tachycardia; I97.190 Other postprocedural cardiac functional disturbances following cardiac surgery; I31.4 Cardiac tamponade; S26.91XA Contusion of heart, unspecified with or without hemopericardium, initial encounter; Y83.2 Surgical operation with anastomosis, bypass or graft as the cause of abnormal reaction of the patient, or of later complication, without mention of misadventure at the time of the procedure; Y71.3 Surgical instruments, materials and cardiovascular devices (including sutures) associated with adverse incidents; I48.91 Unspecified atrial fibrillation; R00.1 Bradycardia, unspecified; I25.110 Atherosclerotic heart disease of native coronary artery with unstable angina pectoris; D72.829 Elevated white blood cell count, unspecified; I11.0 Hypertensive heart disease with heart failure; I25.5 Ischemic cardiomyopathy; E78.2 Mixed hyperlipidemia; R73.01 Impaired fasting glucose; D69.6 Thrombocytopenia, unspecified; D64.9 Anemia, unspecified; N28.9 Disorder of kidney and ureter, unspecified; Z82.49 Family history of ischemic heart disease and other diseases of the circulatory system; Z79.899 Other long term (current) drug therapy; X58.XXXA Exposure to other specified factors, initial encounter; Y93.89 Activity, other specified; Y92.238 Other place in hospital as the place of occurrence of the external cause; Y99.8 Other external cause status
CPT/HCPCS: 36415; 36600; 93458; 96374; 96375; 99285; J3490; S0017; 71045; 80048; 80053; 80061; 80076; 81001; 82040; 82330; 82800; 82803; 82810; 82947; 82962; 83036; 83735; 83880; 84132; 84295; 84484; 85014; 85018; 85025; 85049; 85347; 85384; 85520; 85610; 85730; 86022; 86850; 86900; 86923; 87040; 87070; 87081; 87086; 87205; 92950; 93005; 93306; 93312; 93321; 93325; 93880; 93970; 94002; 94003; 99156; 99157; C1894; G0378; J0171; J0690; J0697; J1644; J1815; J1940; J2250; J2260; J2405; J2704; J2720; J3010; J3370; J3475; J3480; J7060; P9045; P9047; C1751; C1760; C1887; J0282; J1250; J2270; J2370; J2440; J7050; J7120; P9012; P9016; P9017; P9035; Q9967